=== PATIENT | female | born 1990 | race African-American/Black ===

== ENCOUNTER 2022-04-28 16:51 | Emergency (ER) | payer MEDICAID ==
[~2022-04-28] VITALS: Ht 165.1 cm; Wt 54.0 kg
[2022-04-28 19:45] VITALS: BP 145/92
[2022-04-28] MEDS ORDERED: IBUPROFEN 400MG TABLET PO ONE (19:45)
[2022-04-28] MEDS ORDERED: ACETAMINOPHEN 325MG TABLET PO ONE (19:45)
[2022-04-28] MEDS ORDERED: IBUP-2028 MT (21:29)
== END 2022-04-28 21:39 | disposition left against medical advice (07) ==
LOC: ER 16:51
DX: S20.20XA Contusion of thorax, unspecified, initial encounter (principal); I10 Essential (primary) hypertension; Z98.890 Other specified postprocedural states; Y04.0XXA Assault by unarmed brawl or fight, initial encounter; Y93.89 Activity, other specified; Y92.89 Other specified places as the place of occurrence of the external cause
CPT/HCPCS: 71101; 99283